=== PATIENT | female | born 1960 | race Caucasian/White ===

== ENCOUNTER → 2020-07-23 10:54 | Outpatient (CLI) | payer BC, SELFPAY ==
[2020-07-23 11:58] LABS: COVID19 -Nasal RAPID POSITIVE (Negative)
== END ==
PROVIDERS: Family Provider Family Medicine; PCP Family Medicine; Visit Provider Student in an Organized Health Care Education/Training Program
DX: U07.1 COVID-19 (principal)
CPT/HCPCS: 87635

== ENCOUNTER → 2023-05-30 11:43 | Outpatient (CLI) | payer BC, SELFPAY ==
--- NOTE | 2023-05-30 11:44 | DI.RAD.S_ITS ---
Bone Density Report Name: TRISTA GUO Age: 63 Sex: Female Ethnicity: White Date of : 1960 Indication: postmenopausal; screening for osteoporosis; Referring Provider: JADIEL LINARES Study: Bone densitometry was performed. Exam Date: May 30, 2023 Accession number: [id number] Bone Density: Region BMD T-score Z-score Classification AP Spine(L1, L2, L3) 0.591 -3.9 -2.2 Osteoporosis Femoral Neck (Left) 0.537 -2.8 -1.3 Osteoporosis Total Hip (Left) 0.738 -1.7 -0.5 Osteopenia Femoral Neck (Right) 0.554 -2.7 -1.2 Osteoporosis Total Hip (Right) 0.760 -1.5 -0.3 Osteopenia Total Hip Mean 0.749 -1.6 -0.4 Osteopenia World Health Organization criteria for BMD impression classify patients as: Normal (T-score at or above -1.0), Osteopenia (T-score between -1.0 and -2.5), or Osteoporosis (T-score at or below -2.5). 10-year Fracture Risk: FRAX not reported because: Some T-score for Spine Total or Hip Total or Femoral Neck at or below -2.5 Impression: The patient has osteoporosis, based on the Total Spine T-score. Discussion: HIGH RISK OF FRACTURE. BONE DENSITY IS UNDESIRABLY LOW AT ONE OR MORE SKELETAL SITES, CONSISTENT WITH OSTEOPOROSIS. ALSO, BONE DENSITY IS LOWER THAN EXPECTED FOR AGE AND SEX AT ONE OR MORE SKELETAL SITES; RECOMMEND A DILIGENT SEARCH FOR SECONDARY CAUSES OF BONE LOSS. This patient's lowest T-score meets the World Health Organization's (WHO) criteria for osteoporosis at one or more sites (T-score -2.5 or below). In untreated patients, the risk of osteoporotic fracture increases approximately two-fold for each 1.0 SD decrease in T-score. Low bone density is not the only risk factor for fracture; also consider factors such as patient's age, frailty or poor health, risk of falling, risk of injury, previous osteoporotic fracture, family history of osteoporosis, cigarette smoking, low body weight, etc. Not everyone with low bone mineral density has osteoporosis; osteomalacia and other metabolic bone disorders should also be considered. Patients who have osteoporosis should be evaluated for specific diseases and conditions (secondary causes) that may cause or contribute to bone loss. The [place] [employer] (AACE) and National Osteoporosis Foundation (NOF) recommend pharmacologic intervention for all postmenopausal women whose T-score is in this range. Also, this patient's bone mineral density is below the range considered normal for healthy age-, sex-, and race-matched controls at least one site (Z-score -2.0 or below). This warrants careful evaluation for diseases and conditions that may contribute to accelerated bone loss. The patient should follow a healthful lifestyle (good nutrition with adequate calcium and vitamin D, and appropriate weight-bearing exercise). Follow-Up: Consider a repeat BMD and Vertebral Fracture Assessment (VFA) exam in 2 years or sooner if medically necessary, to reassess this patient's status. Reported by: NOVA PAUL M.D. on 05/30/2023 12:48:00 PM.
== END ==
LOC: RAD 11:43
PROVIDERS: Family Provider Family Medicine; PCP Family Medicine; Referring Provider Family Medicine; Visit Provider Family Medicine
DX: M81.0 Age-related osteoporosis without current pathological fracture (principal)
CPT/HCPCS: 77080

== ENCOUNTER → 2024-07-10 11:27 | Outpatient (CLI) | payer BC, SELFPAY | PROVIDERS: Family Provider Family Medicine; PCP Family Medicine; Visit Provider Physician Assistant | DX: J02.9 Acute pharyngitis, unspecified (principal) | CPT/HCPCS: 87070 ==

== ENCOUNTER 2024-07-17 07:47 | Day surgery (SDC) | payer BC, SELFPAY ==
[2024-07-17 08:37] VITALS: BP 156/102; PULSE 108; RESP 16; TEMP 36.3; O2SAT 98
[2024-07-17] MEDS: LACTATED RINGERS 1,000 ML 42 ML IV (08:55)
--- NOTE | 2024-07-17 09:07 | P.HP_ITS ---
History of Present Illness History of Present Illness Date Patient Seen: 07/17/24 Time Patient Seen: 09:07 Chief complaint: SDC Narrative: 64-year-old female, 10 years since her last colonoscopy where she believes polyps were removed. This was done at [place] we do not have any pathology available. [facility] Social History Smoking Status: Never smoker alcohol intake: current Meds Home Medications and Allergies Home Medications Medication Instructions Recorded Confirmed Type albuterol sulfate 90 mcg/actuation 2 puff inhalation Q4-6H PRN 07/18/20 07/17/24 History aerosol inhaler (ProAir HFA) Shortness Of Breath atorvastatin 10 mg tablet 10 mg PO DAILY 07/18/20 07/17/24 History beclomethasone dipropionate 40 2 inh inhalation BID 07/18/20 07/17/24 History mcg/actuation HFA breath activated aerosol (Qvar RediHaler) cetirizine 10 mg capsule (All Day 10 mg PO DAILY PRN Shortness Of 07/18/20 07/17/24 History Allergy (cetirizine)) Breath metoprolol succinate 50 mg 50 mg PO DAILY 07/18/20 07/17/24 History tablet,extended release 24 hr sodium,potassium,mag sulfates 17.5 See Rx Instructions PO .COMPLEX 06/08/24 07/17/24 Rx gram-3.13 gram-1.6 gram oral soln #354 mL (Suprep Bowel Prep Kit) fluticasone propionate 50 1 spray intranasal DAILY #16 grams 07/10/24 07/17/24 Rx mcg/actuation nasal spray,suspension (Flonase Allergy Relief) losartan 50 mg tablet 50 mg PO DAILY 07/10/24 07/17/24 History Allergies Allergy/AdvReac Type Severity Reaction Status Date / Time No Known Drug Allergies Allergy Verified 07/17/24 08:31 Review of Systems Review of Systems ROS: Yes All systems reviewed with the patient and are negative except as otherwise documented Exam Vital Signs (past 8 hours): - 07/17/24 08:37 Temperature 97.3 F L Pulse Rate 108 H Respiratory Rate 16 Blood Pressure 156/102 H Pulse Oximetry 98 Oxygen Delivery Method Room Air Oxygen Delivery Method Room Air Narrative Exam Narrative: Gen: NAD, sitting comfortably in bed, appears well HEENT: Sclera are anicteric, head is normocephalic and atraumatic, trachea is midline. CV: RRR, no JVD Resp: clear to auscultation bilaterally, equal chest wall movement bilaterally Abd: soft, nontender, normoactive bowel sounds Ext: no edema, full range of motion Neuro: Cranial nerves II-XII grossly intact, no focal deficits Skin: No erythema or ecchymosis Assessment & Plan Assessment and plan (1) Personal history of colonic polyps: Status: Acute Assessment & Plan narrative: Patient presents for colonoscopy Risks, benefits, alternatives to colonoscopy explained, including but not limited to bowel perforation or other serious complication requiring surgery at less than 1 in 5000 colonoscopies, abdominal pain, cramping or bleeding and less than 1% of colonoscopies, and the chances that we find a diagnosis that would require further intervention of about 2%. Patient agrees to proceed. Time-Based Coding :: [TOTAL MINUTES] spent with patient and on the chart (including review of chart, obtaining history, exam, reviewing outside data, placing orders, documenting exam and treatment plan, and counseling patient) on [DATE]. [employer] Document charge(s): No
--- NOTE | 2024-07-17 09:31 | P.OP.COLON_ITS ---
Operative Date/Time/Diagnoses Date of procedure: 07/17/24 Time of procedure: 09:31 Pre-op diagnosis: Colon screening Post-op diagnosis: same Procedure & Clinicians Study performed: Colonoscopy Same procedure as scheduled: Yes Indications: Colon screening Surgeon: Terence Hoover Procedure Notes SCOAP/Timeout: Performed Procedure in detail: Time-out was performed. Mac was induced. Patient was placed in left lateral d ecubitus position. The perineum was inspected without any gross abnormality. Lubricated pediatric colonoscope was inserted and advanced to the cecum. The terminal ileum was intubated. The colonoscope was withdrawn slowly inspecting the circumference of the colon. Very small polyps may have been missed, prep quality was adequate. Retroflexed view of the rectum showed small, non prolapsed nonbleeding internal hemorrhoids. The scope was withdrawn the patient was taken to PACU in good condition. Scope withdrawal time: 6 Findings: divertiulosis Specimen(s): none sent Complications: none Impression: Normal colon Post-procedure Recommendations: Colonoscopy in 10 years Follow up: as needed Disposition: PACU
[2024-07-17 09:34] VITALS: BP 101/72; PULSE 89; RESP 15; TEMP 37; O2SAT 96
[2024-07-17 09:39] VITALS: BP 113/73; PULSE 89; RESP 14; TEMP 37; O2SAT 97
[2024-07-17 09:44] VITALS: BP 122/86; PULSE 86; RESP 15; TEMP 36.9; O2SAT 96
[2024-07-17 09:50] VITALS: BP 125/84; PULSE 85; RESP 15; TEMP 36.9; O2SAT 97
== END 2024-07-17 09:55 | disposition home or self-care (01) ==
PROVIDERS: Family Provider Family Medicine; PCP Family Medicine; Referring Provider Surgery; Visit Provider Surgery
PROC: 0DJD8ZZ Inspection of Lower Intestinal Tract, Via Natural or Artificial Opening Endoscopic (ICD-10-PCS; CPT 45378; principal; 2024-07-17 09:30)
DX: Z12.11 Encounter for screening for malignant neoplasm of colon (principal); K57.30 Diverticulosis of large intestine without perforation or abscess without bleeding; K64.8 Other hemorrhoids
CPT/HCPCS: 45378; J2405; J2704